=== PATIENT | male | born 1995 | race Caucasian/White ===

== ENCOUNTER 2019-08-09 14:47 | Emergency (ER) | payer SELFPAY ==
[~2019-08-09] VITALS: Ht 167.6 cm; Wt 46.7 kg
[2019-08-09 14:51] VITALS: Ht 167.6 cm; Wt 46.7 kg
[2019-08-09 15:18] LABS: CARBON DIOXIDE 29.5 mmol/L (21-32); CHLORIDE SERUM 105 mmol/L (98-107); CREATININE SERUM 0.8 mg/dL (0.7-1.3); GFR1 > 60 mL/min; GLUCOSE SERUM 89 mg/dL (74-106); SODIUM SERUM 142 mmol/L (136-145)
[2019-08-09 15:23] LABS: ALBUMIN 4.9 g/dL (3.4-5.0); ALKALINE PHOSPHATASE 105 U/L (46-116); ALT/SGPT 15 U/L (16-63); AST/SGOT 17 U/L (15-37); BILIRUBIN TOTAL 0.55 mg/dL (0.20-1.00); LIPASE 188 IU/L (73-393)
[2019-08-09 15:26] LABS: TOTAL PROTEIN, SERUM 8.3 g/dL (6.4-8.2)
[2019-08-09 15:27] LABS: BASOPHIL % 0.5 % (0-2); PLATELET COUNT 245 x10^3mcL (130-400); RED CELL DISTRIBUTION WIDTH 12.6 % (11.5-14.5)
[2019-08-09 17:55] LABS: FREE T4 1.14 ng/dL (0.76-1.46); FREE THYROXINE INDEX 3.4 ug/dL (1.4-4.5); T4(THYROXINE) 9.9 ug/dL (4.7-13.3)
[2019-08-09 17:57] LABS: T3 TOTAL 1.1 ng/mL
[2019-08-09 18:50] VITALS: BP 116/71
== END 2019-08-09 18:50 | disposition home or self-care (01) ==
LOC: ED 14:47
PROVIDERS: Specialist
DX: F41.9 Anxiety disorder, unspecified (principal); R06.02 Shortness of breath; R07.89 Other chest pain; R11.10 Vomiting, unspecified; R13.10 Dysphagia, unspecified
CPT/HCPCS: 36415; 84439; 85378; J2060; J7030